=== PATIENT | female | born 1995 | race Two or more races ===

== ENCOUNTER 2025-08-09 21:36 | Emergency (ER) | payer BC, OTHER ==
[~2025-08-09] VITALS: Ht 177.8 cm; Wt 71.7 kg
[2025-08-09 22:45] LABS: COVID19 ANTIGEN SOFIA FIA NEGATIVE (NEGATIVE)
[2025-08-09 22:49] LABS: Urine Protein, UAD Negative (Negative)
[2025-08-09] MEDS: ACETAMINOPHEN 325 MG TAB PO ONE (22:49)
--- NOTE | 2025-08-10 00:23 | DVH ---
EXAM: CT HEAD WITHOUT CONTRAST INDICATION: HEADACHE TECHNIQUE: CT of the head without intravenous contrast. Radiation Dose : 1. Head: CT Dose: CTDI volume is 53.81 mGy. Dose-length product is 755.02 mGy*cm The dose indicators for CT are the volume Computed Tomography (CT) Dose Index (CTDIvol) and the Dose Length Product (DLP), and are measured in units of mGy and mGy-cm, respectively. These indicators are not patient dose, but values generated from the CT scanner acquisition factors. The report includes radiation exposure data for exposures received during this examination. COMPARISON: None FINDINGS: Brain: No acute hemorrhage. A bilobed appearing, hypodense structure in the right lentiform nucleus m easures approximately 3.1 x 1.8 x 1.6 cm TR by AP by cc. Mild mass effect on the adjacent right anter ior horn of the lateral ventricle. Additional ill-defined subcentimeter hypodensity within the left p utaminal tail. CSF Spaces: Partial right lateral ventricle anterior horn effacement as above. Otherwise normal. Bones/Soft Tissues: No acute findings. Orbits/Sinuses/Mastoids: Unremarkable as visualized. IMPRESSION: 1. Hypodense 3.1 cm lesion within the right lentiform nucleus, with mild local mass effect. Broad dif ferential considerations include primary malignancy or metastatic lesion, nonacute infarct, infection or other etiology. Brain MRI with and without contrast is recommended. 2. Additional ill-defined subcentimeter hypodensity within the left basal ganglia, attention on next exam. I communicated the above findings by telephone with OBI [place] at 12:20 a.m. [facility] on 08/10/2025, who dem onstrated receipt of the findings. Radiation optimization: All CT scans at this facility use at least one of these dose optimization bety hniques: automated exposure control mA and/or kV adjustment per patient size (includes targeted exam s where dose is matched to clinical indication) or iterative reconstruction.
[2025-08-10] MEDS: KETOROLAC TROMETH 30 MG/ML 1ML VIAL IV ONE (00:45)
[2025-08-10] MEDS: SODIUM CHLORIDE 0.9% 1,000 ML IV ONE (00:45)
[2025-08-10] MEDS: METOCLOPRAMIDE HCL 5MG/ml INJ 2ml VIAL IV ONE (00:45)
[2025-08-10] MEDS: diphenhydrAMINE HCL 50 MG/1 ML VL IV ONE (00:45)
--- NOTE | 2025-08-10 01:34 | ED.PDOC ---
History of Present Illness HPI Comments 30-year-old female presents with chief complaint of headaches. Patient endorses 5 day history of pain to the right side of the head following initial, unprovoked and atraumatic onset. She rates pain at 8/10 in severity and having no relief with sdvf-hfn-[id number] pain medication, use showers, or ice slush hot water compresses. Patient has a history of migraines since she was a child but does not have had any follow up care for the since the age of 14. She states on having associated vomiting. Denies any fever, chills, weakness, dizziness, or further acute symptoms. REVIEW OF SYSTEMS: General: No fever, no chills, or fatigue HEENT: No sore throat, no earache, no congestion, no neck pain. Cardiac: No chest pain. No palpitations. Lungs: No shortness of breath, no cough. GI: Vomiting, no nausea, no diarrhea, no constipation, no abdominal pain : No dysuria, frequency, or urgency. No hematuria. Musculoskeletal: No joint pain , no joint swelling, no extremity edema. Skin: No rash, no itching. Neuro: Headache, no dizziness, no weakness PHYSICAL EXAM: General: Awake, alert and oriented. No acute distress. Skin: Skin in warm, dry and intact. Appropriate color for ethnicity. HEENT: The head is normocephalic and atraumatic. Conjunctivae are clear without exudates or hemorrhage. Sclera is non-icteric. EOM are intact. PERRLA. No signs of nystagmus. Eyelids are normal in appearance without swelling or lesions. Oral mucosa is pink and moist Neck: The neck is supple with normal range of motion. No JVD. Cardiac: Heart rate and rhythm are normal. No murmurs, gallops, or rubs are auscultated. Respiratory: No signs of respiratory distress. Lung sounds are clear in all lobes bilaterally without rales, rhonchi, or wheezes. Abdominal: Abdomen is soft, non-tender without distention, guarding or rigidity. Bowel sounds are present and normoactive in all four quadrants. Extremities: Upper and lower extremities are atraumatic in appearance without deformity or edema. Neurological: The patient is awake, alert and oriented to person, place, and time with normal speech. Speech is clear. There is no facial asymmetry. Normal uprlzj-zc-lfte test. Psychiatric: Appropriate mood and affect. Good judgement and insight. 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 Was a procedure done?: No Differential Dx Considerations may include: Differential diagnoses considered include but are not limited to temporal arteritis, acute angle closure glaucoma, encephalitis, bacterial meningitis, carbon monoxide poisoning, posttraumatic headache, SAH, subdural hematoma, cervical artery dissection, venous sinus thrombosis, CVA, migraine headache, cluster headache, tension headache, TMJ disorder, frontal sinusitis, cervical spondylosis, intracranial mass, pituitary apoplexy. X-Ray, Labs, Meds, VS Vital Signs Date Time Temp Pulse Resp B/P (MAP) Pulse Ox O2 Delivery O2 Flow Rate FiO2 08/10/25 00:20 98.2 55 12 130/76 (94) 99 98.2 08/09/25 21:42 99.8 52 18 147/90 99 99.8 Lab Test 08/09/25 22:37 08/09/25 22:08 Range/Units Urine Color Yellow Yellow Urine Clarity Clear Clear Urine pH 6.0 5.0-9.0 Urine Specific [place] 1.020 1.001-1.035 Urine Protein Negative Negative Urine Ketones Negative Negative Urine Blood Negative Negative /uL Urine Nitrite Negative Negative Urine Bilirubin Negative Negative Urine Urobilinogen 2 H Negative mg/dL Urine Leukocyte Esterase Negative Negative /uL Urine RBC None seen 0 - 4 /hpf Urine Microscopic WBC < 1 0-5 /HPF Urine Squamous Epithelial Cells Few <5 /hpf Urine Bacteria None seen None Seen /hpf Urine Mucus Few None Seen Urine Glucose Normal Normal mg/dL Urine Test Negative Negative Influenza Type A Antigen Negative Negative Influenza Type B Antigen Negative Negative SARS-CoV-2 Antigen (Rapid) Negative NEGATIVE Current Medications Medications (Trade) Dose Ordered Sig/Reta Route Start Time Stop Time Status Last Admin Acetaminophen (Tylenol Tablet) 650 mg ONCE ONCE PO 08/09/25 22:00 08/09/25 22:01 DC 08/09/25 22:49 [place] [id number] Ph: [phone] DIAGNOSTIC IMAGING Diagnostic Imaging Report : [id number] Signed PATIENT: ABDIRASHID ZAVALA ACCT: [id number] UNIT: [id number] : 1995 LOC: ER ROOM / BED: / AGE / SEX: 30 / F ADM STATUS: REG ER SERVICE 235 ORDERING PHYSICIAN: ASYA STRANGE PROCEDURE(s): HWOCT - HEAD WITHOUT CONTRAST REASON: HEADACHE ORDER NUMBER(s): [id number], ACCESSION NUMBER(s): [id number] EXAM: CT HEAD WITHOUT CONTRAST INDICATION: HEADACHE TECHNIQUE: CT of the head without intravenous contrast. Radiation Dose : 1. Head: CT Dose: CTDI volume is 53.81 mGy. Dose-length product is 755.02 mGy*cm The dose indicators for CT are the volume Computed Tomography (CT) Dose Index (CTDIvol) and the Dose Length Product (DLP), and are measured in units of mGy and mGy-cm, respectively. These indicators are not patient dose, but values generated from the CT scanner acquisition factors. The report includes radiation exposure data for exposures received during this examination. COMPARISON: None FINDINGS: Brain: No acute hemorrhage. A bilobed appearing, hypodense structure in the right lentiform nucleus measures approximately 3.1 x 1.8 x 1.6 cm TR by AP by cc. Mild mass effect on the adjacent right anterior horn of the lateral ventricle. Additional ill-defined subcentimeter hypodensity within the left putaminal tail. CSF Spaces: Partial right lateral ventricle anterior horn effacement as above. Otherwise normal. Bones/Soft Tissues: No acute findings. Orbits/Sinuses/Mastoids: Unremarkable as visualized. IMPRESSION: 1. Hypodense 3.1 cm lesion within the right lentiform nucleus, with mild local mass effect. Broad differential considerations include primary malignancy or metastatic lesion, nonacute infarct, infection or other etiology. Brain MRI with and without contrast is recommended. 2. Additional ill-defined subcentimeter hypodensity within the left basal ganglia, attention on next exam. I communicated the above findings by telephone with OBI Strange at 12:20 a.m. [facility] on 08/10/2025, who demonstrated receipt of the findings. Radiation optimization: All CT scans at this facility use at least one of these dose optimization techniques: automated exposure control mA and/or kV adjustment per patient size (includes targeted exams where dose is matched to clinical indication) or iterative reconstruction. ATED BY: DEBRA MCKAY MD DICTATED DATE/TIME: 08/10/2520 SIGNED BY: DEBRA MCKAY MD SIGNED DATE/TIME: 08/10/2520 CC: Time of 1ST Reevaluation: 01:00 Reevaluation 1ST: Unchanged Patient Education/Counseling: Treatment Family Education/Counseling: No Family Present SEPSIS Sepsis Screen Date sepsis recognized/suspect: Aug 09, 2025 Time Sepsis recognized/suspect: 2142 Recent Procedure: No On Antibiotic Therapy: No Respiratory Rate >20: No Heart Rate >90: No Temp<36 C (96.8 F) or >38.3 C: No SBP <90 or MAP <65 mmHG: No New Acute Mental Status Change: No Is the patient on CPAP, BIPAP,: No Physician Orders Head Without Contrast (08/09/25 23:52) Sodium Chloride 0.9% (08/10/25 00:45) Vital Signs Date Time Temp Pulse Resp B/P (MAP) Pulse Ox O2 Delivery O2 Flow Rate FiO2 08/10/25 00:20 98.2 55 12 130/76 (94) 99 98.2 08/09/25 21:42 99.8 52 18 147/90 99 99.8 Medications Medications Dose Ordered Sig/Reta Route Start Time Stop Time Status Last Admin Dose Admin Acetaminophen 650 mg ONCE ONCE PO 08/09/25 22:00 08/09/25 22:01 DC 08/09/25 22:49 Departure 1 Departure Time of Disposition: 01:37 Impression: Primary Impression: Brain mass Additional Impression: Headache Disposition: 01 HOME / SELF CARE / HOMELESS Condition: Stable Additional Instructions: YOU DECIDED TO LEAVE AGAINST MEDICAL ADVICE TODAY. You have been informed of the benefits of staying such as further diagnosis and treatment of possible serious cause of your symptoms, and the risks of leaving such as , chronic pain, permanent disability or other serious adverse events which might be attributed to leaving. You may return here at any time if you change your mind or need to further concerns. It is very important that you follow up with your primary care provider for follow up as soon as possible. A copy of your CAT scan report is included below. PATIENT: ABDIRASHID ZAVALA PROCEDURE(s): HWOCT - HEAD WITHOUT CONTRAST REASON: HEADACHE ORDER NUMBER(s): [id number], ACCESSION NUMBER(s): [id number] EXAM: CT HEAD WITHOUT CONTRAST INDICATION: HEADACHE TECHNIQUE: CT of the head without intravenous contrast. Radiation Dose : 1. Head: CT Dose: CTDI volume is 53.81 mGy. Dose-length product is 755.02 mGy*cm The dose indicators for CT are the volume Computed Tomography (CT) Dose Index (CTDIvol) and the Dose Length Product (DLP), and are measured in units of mGy and mGy-cm, respectively. These indicators are not patient dose, but values generated from the CT scanner acquisition factors. The report includes radiation exposure data for exposures received during this examination. COMPARISON: None FINDINGS: Brain: No acute hemorrhage. A bilobed appearing, hypodense structure in the right lentiform nucleus measures approximately 3.1 x 1.8 x 1.6 cm TR by AP by c c. Mild mass effect on the adjacent right anterior horn of the lateral ventricle. Additional ill-defined subcentimeter hypodensity within the left putaminal tail. CSF Spaces: Partial right lateral ventricle anterior horn effacement as above. Otherwise normal. Bones/Soft Tissues: No acute findings. Orbits/Sinuses/Mastoids: Unremarkable as visualized. IMPRESSION: 1. Hypodense 3.1 cm lesion within the right lentiform nucleus, with mild local mass effect. Broad differential considerations include primary malignancy or metastatic lesion, nonacute infarct, infection or other etiology. Brain MRI with and without contrast is recommended. 2. Additional ill-defined subcentimeter hypodensity within the left basal ganglia, attention on next exam. I communicated the above findings by telephone with OBI Strange at 12:20 a.m. [facility] on 08/10/2025, who demonstrated receipt of the findings. Radiation optimization: All CT scans at this facility use at least one of these dose optimization techniques: automated exposure control mA and/or kV adjustment per patient size (includes targeted exams where dose is matched to clinical indication) or iterative reconstruction. Comments MDM: Despite our efforts, patient has decided to leave against medical advice. The patient has a normal mental status and full decisional capacity. Patient has been informed of the benefits of staying such as further diagnosis and treatment of possible serious etiology of the symptoms, and the risks of leaving such as , chronic pain, permanent disability or other serious adverse events which might be attributed to leaving. The patient displays clear understanding of these benefits and risks and chooses to leave. The patient is been informed also that they may return here at any time if they change their mind or need to further concerns or questions has been referred to their local medical physician for follow up [place]. Extensive evaluation was performed in attempt to identify or rule out: (See differential diagnosis section) The following tests were ordered, and results were reviewed by me and discussed with patient: (See diagnostic results section) The following test were independently interpreted by me: N/A I reviewed and agreed with the following test results read by other providers: Head CT without contrast I reviewed the following notes from the pt's past medical encounters: N/A Additional information was gathered from interviewing the following independent historians: N/A Discussion of management or test interpretation with external physician/other qualified health career transition specialist: N/A Addressed [ ]one or more chronic illnesses with severe exacerbation, progression, or side effects of treatment: [ ]an acute or chronic illness that poses a threat to life or bodily function: [ ] Decision regarding hospitalization or escalation of hospital level of care: Risk and benefits of admission for further treatment of patient's condition was considered. Due to patient's current clinical condition, high risk of decline and poor outcome if discharged and need for further inpatient management and monitoring, patient will be admitted to the hospital. Drug therapy requiring intensive monitoring for toxicity: N/A Parenteral controlled substances: N/A Decision regarding elective major surgery with identified patient or procedure risk factors: N/A Decision regarding emergency major surgery: N/A Decision not to resuscitate or to de-escalate care because of poor prognosis: N/A Diagnosis or treatment significantly limited by social determinants of health: N/A Decision regarding hospitalization or escalation of hospital level of care: Risks and benefits of admission for further treatment of patient's condition was considered however due to patient's stable condition patient will be discharged to follow up closely or return to care for worsening of condition or inability to follow up. I personally scribed for CORBIN CHAIDEZ MD ([email or web address]) on 08/10/25 at 01:34. Electronically submitted by Orion Sharpe ([email or web address]). CORBIN CHAIDEZ MD Aug 10, 2025 01:34
[2025-08-10 01:50] VITALS: BP 145/73; PULSE 55; RESP 12; TEMP 98.4; O2SAT 100
== END 2025-08-10 01:54 | disposition left against medical advice (07) ==
LOC: ER 21:36
DX: G93.9 Disorder of brain, unspecified (principal); R51.9 Headache, unspecified; F17.210 Nicotine dependence, cigarettes, uncomplicated; Z98.51 Tubal ligation status; Z20.822 Contact with and (suspected) exposure to COVID-19
CPT/HCPCS: 36415; 70450; 81001; 81025; 87426; 87804